=== PATIENT | female | born 1980 | race Caucasian/White ===

== ENCOUNTER 2018-03-27 09:13 | Inpatient (IN) | payer BC ==
[2018-03-27 11:23] LABS: ABS Basophils 0.1 10^3/ul (0-0.2); ABS Eosinophils 0.1 10^3/ul (0-0.6); ABS Lymphocytes 1.5 10^3/ul (1.0-4.8); ABS Monocytes 0.7 10^3/ul (0-0.8); ABS Neutrophils 7.9 10^3/ul (1.5-7.7); ABS Nucleated RBC 0 10^3/ul; Eosinophil % 1.4 % (0-6); Hematocrit 34 % (35-47); Hemoglobin 11.5 g/dl (12.0-16.0); Lymphocyte % 14.4 % (25-47); Mean Corpuscular HGB Conc 34 g/dl (31-36); Mean Corpuscular Hemoglobin 30 pg (27-31); Mean Corpuscular Volume 88 fL (80-97); Mean Platelet Volume 7.5 fL (7.4-10.4); Nucleated Red Blood Cells % 0; Platelet Count 284 10^3/ul (150-450); Red Blood Count 3.79 10^6/ul (4.00-5.40); Red Cell Distribution Width 13 % (10.5-15); White Blood Count 10.4 10^3/ul (3.5-10.8)
[2018-03-27 11:43] LABS: EGFR Non-African American 171.7 (>60)
[2018-03-27] MEDS ORDERED: Betamethasone INJ* 6 MG/ML 5 ML VIAL (30 MG) IM ONE (11:51)
[2018-03-27 12:00] LABS: INR 0.88 (0.77-1.02)
[2018-03-27 12:09] LABS: Platelet Count 284 10^3/ul (150-450); Schistocytes ABSENT
[2018-03-27] MEDS ORDERED: Betamethasone INJ* 6 MG/ML 5 ML VIAL (30 MG) ONE (12:10)
--- NOTE | 2018-03-27 15:00 | HP ---
General Information - Reason for Visit vaginal bleeding - General Information Maternal Age: 37 Grav: 2 Para: 1 SAB: 1 IEA: 0 Estimated Due Date: 05/25/18 Determined By: LMP Maternal Blood Type and Rh: A Positive - Results this Serology/RPR Result: Non-Reactive Rubella Result: Immune HBsAg Result: Negative HIV Result: Negative Past Medical History Delivery History: See Records Pertinent Past Medical History: See Records Pertinent Past Surgical History: See Records Pertinent Family History: See Records - Antepartal Records Antepartal Records: Reviewed, Complicated by: - possible vasa previa/ possible premature rupture of membranes Review of Systems Constitutional: Comfortable CV Complaint: No Respiratory: Shortness of Breath: No Gastrointestinal: No Nausea/Vomiting Genitourinary: Leaking Fluid, No Dysuria, No Bleeding Musculoskeletal: No Complaint Neurological: No Headache Movement: Normal Exam Allergies/Adverse Reactions: Allergies Penicillins Allergy (Verified 03/23/18 06:33) Hives Vital Signs 03/27/18 12:00 Respiratory 16 Rate Lab Values - Entire Visit: Laboratory Tests 03/27/18 03/27/18 03/27/18 10:10 10:10 10:10 WBC 10.4 RBC 3.79 L Hgb 11.5 L Hct 34 L MCV 88 MCH 30 MCHC 34 RDW 13 Plt Count 284 284 MPV 7.5 Neut % (Auto) 76.3 Lymph % (Auto) 14.4 L [place] % (Auto) 7.0 Eos % (Auto) 1.4 Baso % (Auto) 0.9 Absolute Neuts (auto) 7.9 H Absolute Lymphs (auto) 1.5 Absolute Monos (auto) 0.7 Absolute Eos (auto) 0.1 Absolute Basos (auto) 0.1 Absolute Nucleated RBC 0 Nucleated RBC % 0 Schistocytes Absent INR (Anticoag Therapy) 0.88 APTT 23.7 L Fibrinogen 475.1 H D-Dimer, Quantitative 526 H Sodium Potassium Chloride Carbon Dioxide Anion Gap BUN Creatinine Est GFR ( Amer) Est GFR (Non-Af Amer) BUN/Creatinine Ratio Glucose Calcium Total Bilirubin AST ALT Alkaline Phosphatase Total Protein Albumin Globulin Albumin/Globulin Ratio Syphilis IgG Antibody Hep Bs Antigen HIV 1&2 Antibody Rapid Rubella Screen Blood Type A Positive Antibody Screen Negative KB Hemoglobin 03/27/18 03/27/18 03/27/18 10:10 10:10 10:10 WBC RBC Hgb Hct MCV MCH MCHC RDW Plt Count MPV Neut % (Auto) Lymph % (Auto) [place] % (Auto) Eos % (Auto) Baso % (Auto) Absolute Neuts (auto) Absolute Lymphs (auto) Absolute Monos (auto) Absolute Eos (auto) Absolute Basos (auto) Absolute Nucleated RBC Nucleated RBC % Schistocytes INR (Anticoag Therapy) APTT Fibrinogen D-Dimer, Quantitative Sodium 136 Potassium 3.9 Chloride 107 Carbon Dioxide 22 Anion Gap 7 BUN 9 Creatinine 0.42 L Est GFR ( Amer) 207.8 Est GFR (Non-Af Amer) 171.7 BUN/Creatinine Ratio 21.4 H Glucose 81 Calcium 8.3 L Total Bilirubin 0.30 AST 17 ALT 14 Alkaline Phosphatase 122 H Total Protein 6.3 L Albumin 3.3 Globulin 3.0 Albumin/Globulin Ratio 1.1 Syphilis IgG Antibody Nonreactive Hep Bs Antigen Nonreactive HIV 1&2 Antibody Rapid Nonreactive Rubella Screen Immune Blood Type Antibody Screen KB Hemoglobin 03/27/18 10:10 WBC RBC Hgb Hct MCV MCH MCHC RDW Plt Count MPV Neut % (Auto) Lymph % (Auto) [place] % (Auto) Eos % (Auto) Baso % (Auto) Absolute Neuts (auto) Absolute Lymphs (auto) Absolute Monos (auto) Absolute Eos (auto) Absolute Basos (auto) Absolute Nucleated RBC Nucleated RBC % Schistocytes INR (Anticoag Therapy) APTT Fibrinogen D-Dimer, Quantitative Sodium Potassium Chloride Carbon Dioxide Anion Gap BUN Creatinine Est GFR ( Amer) Est GFR (Non-Af Amer) BUN/Creatinine Ratio Glucose Calcium Total Bilirubin AST ALT Alkaline Phosphatase Total Protein Albumin Globulin Albumin/Globulin Ratio Syphilis IgG Antibody Hep Bs Antigen HIV 1&2 Antibody Rapid Rubella Screen Blood Type Antibody Screen KB Hemoglobin 0.000 - Measurements Height: 5 ft 4 in Weight: 152 lb 12.8 oz Weight in lbs: [id number] Body Mass Index (BMI): 26.2 Pre- Weight: 140 lb Weight Gained This : 12.8 lbs and 0 ozs - Exam Breast: Breast Exam Deferred CVA: No CVA Tenderness Extremities: No Edema Heart: Normal Rhythm/Heart Sounds HEENT: No Significant Findings Lungs: Clear Bilaterally Rectal: Rectal Exam Deferred Reflexes: DTR 2+ - Abdominal Exam Abdomen Exam: Non-Tender - Ultrasound/Biophysical Profile Ultrasound Status: Radiology Department Full Exam Targeted Exam Findings See L&D Outpatient Visit Provider Note for Findings: Yes Estimated Weight: 4# 2 0z/ no cervical exam done givne possible vasa previa Amniotic Fluid Evaluation: ROM Plus Pending EFM Findings - External Monitor Findings Baseline Heart Rate: 140 External Monitor Findings: Accelerations Present, No Pattern of Variable or Late Decelerations, Variability Moderate Contractions: Irregular Assessment/Plan - Assessment possible premature rupture of membranes possible vasa previa - Obstetrical Risk Factors Obstetrical Risk Factors: GBS Unknown, - Plan Plan: Antibiotic Prophylaxis - Admit inpatient and observe/ steroids for FLM and begin abx to increase latency, Steroids
[2018-03-27] MEDS: ceFAZolin 1 GM in Dextrose (*) 1 GM/50 ML BAG IVPB SCH (15:59)
[2018-03-27] MEDS ORDERED: ceFAZolin 1 GM ADVAN(*) 1 GM in NS 0.9% 50 ML* 50 ML IVPB SCH (16:00)
[2018-03-27] MEDS ORDERED: Azithromycin TAB* 250 MG PO ONE (16:00)
[2018-03-28] MEDS: ceFAZolin 1 GM in Dextrose (*) 1 GM/50 ML BAG IVPB SCH ×3 (00:22→16:35)
[2018-03-28] MEDS ORDERED: Acetaminophen TAB* 325 MG ONE (02:47)
[2018-03-28] MEDS ORDERED: Acetaminophen TAB* 325 MG PO PRN (03:31)
[2018-03-28] MEDS: LEVOTHYROXINE 137 MCG PO SCH (06:00)
[2018-03-28] MEDS: Prenatal Vitamin TAB PO SCH (09:00)
[2018-03-28] MEDS: Betamethasone INJ* 6 MG/ML 5 ML VIAL (30 MG) IM ONE ×2 (12:20→12:22)
[2018-03-29] MEDS: ceFAZolin 1 GM in Dextrose (*) 1 GM/50 ML BAG IVPB SCH ×2 (00:18→07:59)
[2018-03-29] MEDS: LEVOTHYROXINE 137 MCG PO SCH (06:12)
[2018-03-29] MEDS: Prenatal Vitamin TAB PO SCH (08:52)
--- NOTE | 2018-03-29 13:23 | PN ---
Progress Note - Progress Note Date of Service: 03/29/18 Note: S: pt feeling well. No LOF or VB today. Good FM. Pt up and moving. AVSS Gen: NAD Abd: soft, gravid, NT Ext: neg calf tenderness, neg edema A: @31.5wks with suspected PPROM (?03/23@6am) and previous vaginal bleeding (none since 03/28 3am). Low lying placenta. S/p betamethasone. S/p 48hrs of abx. P: Switch to PO Keflex x5 days Cont NST q shift, VS q2hr when awake If e/o labor or infection will evaluate placental location to determine mode of delivery. Likely delivery at 34wks if not sooner.
[2018-03-29] MEDS: Cephalexin CAP* 500 MG PO SCH ×2 (16:26→22:10)
[2018-03-30] MEDS: Cephalexin CAP* 500 MG PO SCH ×3 (04:05→17:53)
[2018-03-30] MEDS: LEVOTHYROXINE 137 MCG PO SCH (06:07)
--- NOTE | 2018-03-30 11:15 | PN ---
Progress Note - Progress Note Date of Service: 03/30/18 Note: S: pt feeling well. Good FM. She had one episode of a small amount of bleeding with a small clot when she went to the bathroom last evening and then another one this am but no bleeding in between. She also had about an hour of uncomfortable, but not painful ctxs last evening that were about 8-9min apart. Only irreg ctx since. AVSS Gen: NAD Abd: soft, gravid, NT Ext: neg calf tenderness, neg edema A: @31.6wks with suspected PPROM (?03/23@6am) and previous vaginal bleeding (none since 03/28 3am). Low lying placenta. S/p betamethasone. S/p 48hrs of IV abx, now on PO Keflex. P: Cont to PO Keflex x5 days Cont NST q shift, VS q2hr when awake If e/o labor or infection will evaluate placental location to determine mode of delivery. Likely delivery at 34wks if not sooner.
[2018-03-30] MEDS: Prenatal Vitamin TAB PO SCH (13:57)
[2018-03-31] MEDS: Cephalexin CAP* 500 MG PO SCH ×4 (00:12→18:00)
--- NOTE | 2018-03-31 09:58 | PN ---
Progress Note - Progress Note Date of Service: 03/31/18 SOAP: Subjective: [pt feeling well with no contractions or bleeding] Objective: []vital stable and afebrile abdomen soft nontender, gfm Assessment: []32 + weeks with pprom and low lying placenta. stable Plan: []continued observation and antibiotics Nando Muñoz MD
[2018-03-31 10:03] LABS: ABS Basophils 0.1 10^3/ul (0-0.2); ABS Eosinophils 0.2 10^3/ul (0-0.6); ABS Lymphocytes 1.4 10^3/ul (1.0-4.8); ABS Monocytes 0.9 10^3/ul (0-0.8); ABS Neutrophils 8.8 10^3/ul (1.5-7.7); ABS Nucleated RBC 0 10^3/ul; Eosinophil % 1.5 % (0-6); Hematocrit 29 % (35-47); Hemoglobin 9.8 g/dl (12.0-16.0); Lymphocyte % 12.6 % (25-47); Mean Corpuscular HGB Conc 34 g/dl (31-36); Mean Corpuscular Hemoglobin 30 pg (27-31); Mean Corpuscular Volume 89 fL (80-97); Mean Platelet Volume 7.4 fL (7.4-10.4); Nucleated Red Blood Cells % 0; Platelet Count 258 10^3/ul (150-450); Red Blood Count 3.24 10^6/ul (4.00-5.40); Red Cell Distribution Width 13 % (10.5-15); White Blood Count 11.4 10^3/ul (3.5-10.8)
[2018-03-31] MEDS: Prenatal Vitamin TAB PO SCH (11:39)
[2018-04-01] MEDS: Cephalexin CAP* 500 MG PO SCH ×5 (00:01→23:53)
[2018-04-01] MEDS: LEVOTHYROXINE 137 MCG PO SCH (05:53)
[2018-04-01] MEDS: Ferrous Gluconate TAB* 324 MG TAB PO SCH (08:18)
[2018-04-01] MEDS: Prenatal Vitamin TAB PO SCH (08:19)
[2018-04-02] MEDS: Cephalexin CAP* 500 MG PO SCH ×3 (05:57→18:20)
[2018-04-02] MEDS: LEVOTHYROXINE 137 MCG PO SCH (05:58)
[2018-04-02] MEDS: Prenatal Vitamin TAB PO SCH (07:52)
[2018-04-02] MEDS: Ferrous Gluconate TAB* 324 MG TAB PO SCH (07:52)
[2018-04-02] MEDS: Docusate CAP* 100 MG PO SCH (12:49)
[2018-04-03] MEDS: Cephalexin CAP* 500 MG PO SCH ×3 (00:46→13:02)
[2018-04-03] MEDS: Docusate CAP* 100 MG PO SCH ×2 (00:55→16:33)
--- NOTE | 2018-04-03 02:21 | PN ---
Progress Note - Progress Note Date of Service: 04/02/18 SOAP: Subjective: Pt without complaint today. Active FMs, no VB, minimal continued fluid leakage. Denies F/C. Objective: VS normal, afebrile Gen: NAD Abd soft, nontender, gravid NST (BID) reactive, no decels, +accels, moderate rosemary [place]: irreg mild ctx Assessment: 32+3 wks with PPROM, HD#7, s/p betamethasone. Abx day #7 Doing well, no evidence of infection or labor. Very reassuring status Plan: Discussed delivery planning/timing today. Last ultrasound showed no vasa previa, and previous one showed placenta was low (12mm from os), so pt plans . Current plan is to observe until 34 weeks (if no infection/labor), so we will need to schedule . D/C Abx after 7 days complete.
[2018-04-03] MEDS: LEVOTHYROXINE 137 MCG PO SCH (07:35)
[2018-04-03] MEDS: Ferrous Gluconate TAB* 324 MG TAB PO SCH (09:58)
--- NOTE | 2018-04-03 13:21 | PN ---
Progress Note - Progress Note Date of Service: 04/03/18 SOAP: [Subjective: Pt without complaint today. Active FMs, Very minimal bleeding when wiping this am but decreasing now. No other LOF. No ctxs Objective: AVSS Gen: NAD Abd: soft, nontender, gravid NST (BID) reactive, no decels, +accels, moderate rosemary [place]: irreg mild ctx Assessment: 32+4 wks with PPROM and intermittent vaginal bleeding, HD#7, s/p betamethasone and abx finishing today Doing well, no evidence of infection or labor. Very reassuring status Low lying placenta Plan: Observe until 34 weeks if no e/o infection or labor. Then likely CS. ]
[2018-04-03 16:13] LABS: ABS Basophils 0.1 10^3/ul (0-0.2); ABS Eosinophils 0.2 10^3/ul (0-0.6); ABS Lymphocytes 1.9 10^3/ul (1.0-4.8); ABS Monocytes 0.9 10^3/ul (0-0.8); ABS Neutrophils 9.9 10^3/ul (1.5-7.7); ABS Nucleated RBC 0 10^3/ul; Eosinophil % 1.9 % (0-6); Hematocrit 33 % (35-47); Lymphocyte % 14.8 % (25-47); Mean Corpuscular HGB Conc 34 g/dl (31-36); Mean Corpuscular Hemoglobin 30 pg (27-31); Mean Corpuscular Volume 88 fL (80-97); Mean Platelet Volume 7.5 fL (7.4-10.4); Nucleated Red Blood Cells % 0; Platelet Count 342 10^3/ul (150-450); Red Blood Count 3.72 10^6/ul (4.00-5.40); Red Cell Distribution Width 13 % (10.5-15)
[2018-04-03] MEDS: Prenatal Vitamin TAB PO SCH (16:33)
[2018-04-04] MEDS: Docusate CAP* 100 MG PO SCH ×2 (07:22→09:37)
[2018-04-04] MEDS: LEVOTHYROXINE 137 MCG PO SCH ×2 (08:16→09:37)
[2018-04-04] MEDS: Prenatal Vitamin TAB PO SCH (10:27)
[2018-04-04] MEDS: Ferrous Gluconate TAB* 324 MG TAB PO SCH (10:27)
[2018-04-05] MEDS: LEVOTHYROXINE 137 MCG PO SCH (06:02)
[2018-04-05] MEDS: Docusate CAP* 100 MG PO SCH ×2 (06:02→14:40)
[2018-04-05] MEDS: Prenatal Vitamin TAB PO SCH (14:40)
[2018-04-05] MEDS: Ferrous Gluconate TAB* 324 MG TAB PO SCH (14:46)
[2018-04-06] MEDS: LEVOTHYROXINE 137 MCG PO SCH (07:10)
[2018-04-06] MEDS: Prenatal Vitamin TAB PO SCH (12:48)
[2018-04-06] MEDS: Docusate CAP* 100 MG PO SCH (12:48)
[2018-04-06] MEDS: Ferrous Gluconate TAB* 324 MG TAB PO SCH (12:53)
[2018-04-06 19:24] LABS: ABS Basophils 0.1 10^3/ul (0-0.2); ABS Eosinophils 0.2 10^3/ul (0-0.6); ABS Lymphocytes 1.8 10^3/ul (1.0-4.8); ABS Monocytes 0.8 10^3/ul (0-0.8); ABS Neutrophils 7.8 10^3/ul (1.5-7.7); ABS Nucleated RBC 0 10^3/ul; Eosinophil % 1.7 % (0-6); Hematocrit 32 % (35-47); Hemoglobin 10.9 g/dl (12.0-16.0); Lymphocyte % 16.6 % (25-47); Mean Corpuscular HGB Conc 34 g/dl (31-36); Mean Corpuscular Hemoglobin 30 pg (27-31); Mean Corpuscular Volume 88 fL (80-97); Mean Platelet Volume 7.4 fL (7.4-10.4); Nucleated Red Blood Cells % 0; Platelet Count 369 10^3/ul (150-450); Red Blood Count 3.68 10^6/ul (4.00-5.40); Red Cell Distribution Width 13 % (10.5-15); White Blood Count 10.7 10^3/ul (3.5-10.8)
[2018-04-07] MEDS: LEVOTHYROXINE 137 MCG PO SCH (06:01)
[2018-04-07] MEDS: Ferrous Gluconate TAB* 324 MG TAB PO SCH (12:45)
[2018-04-07] MEDS: Prenatal Vitamin TAB PO SCH (12:46)
[2018-04-07] MEDS: Docusate CAP* 100 MG PO SCH (12:46)
[2018-04-08] MEDS: LEVOTHYROXINE 137 MCG PO SCH (06:18)
[2018-04-08] MEDS: Ferrous Gluconate TAB* 324 MG TAB PO SCH (10:04)
--- NOTE | 2018-04-08 10:28 | PN ---
Medicine Progress Note - Date of Service Date of Service: 04/08/18 - Subjective Subjective: Mrs. Houston is a 37 y/o with a at 33 2/7 weeks EGA. She was admitted with PPROM and vaginal bleeding with a Low lying placenta. She has received a course of steroids to advance lung maturity, antibiotic prophylaxis which were discontinued on 04/03/18. She reports active movement. occasional/infrequent mild contractions, denies abdominal pain, vaginal bleeding or discharge and no fever or chills. - Objective Objective: Vital Signs 04/07/18 04/07/18 04/07/18 12:30 16:36 20:15 Temperature 98.0 F 97.3 F Pulse Rate 80 87 Respiratory 17 16 18 Rate Blood Pressure 132/63 116/67 (mmHg) Current Medications Acetaminophen (Tylenol Tab*) 650 mg PO Q6H PRN PRN Reason: PAIN - HEADACHE Last Admin: 03/30/18 07:18 Dose: 650 mg Docusate Sodium (Colace Cap*) 100 mg PO BID [facility] Last Admin: 04/07/18 12:46 Dose: Not Given Ferrous Gluconate (Fergon Tab*) 324 mg PO DAILY [facility] Last Admin: 04/08/18 10:04 Dose: 324 mg Levothyroxine Sodium (Synthroid Tab*) 137 mcg PO DAILY@0600 [facility] Last Admin: 04/08/18 06:18 Dose: 137 mcg Multivitamins ( Vitamin Tab*) 1 tab PO DAILY [facility] Last Admin: 04/07/18 12:46 Dose: Not Given Intake and Output Start: 03/27/18 11: 55 Freq: Status: Active Protocol: Created 03/27/18 11:55 System (Rec: 03/27/18 11:55 System [facility]-[id number]) Document 03/28/18 09:30 [id number] (Rec: 03/28/18 15:55 [id number] [facility]-[id number]) Document 03/28/18 13:15 [id number] (Rec: 03/28/18 15:56 [id number] [facility]-C05) Document 03/28/18 16:50 [id number] (Rec: 03/28/18 16:51 [id number] [email or web address]-[email or web address]) Document 03/28/18 19:00 [id number] (Rec: 03/28/18 19:09 [id number]) Last Finger Stick Glucose Documented by Nursing: General: AAOx3, comfortable. Lungs: CTA b/l, no CVA tenderness noted Cardiovascular: RRR Abdomen:Soft, non tender, gravid with palpable movement. Extremities:Non tender b/l Non Stress test Reactive - Labs Labs: 04/06/18 04/06/18 16:20 16:20 WBC 10.7 RBC 3.68 L Hgb 10.9 L Hct 32 L MCV 88 MCH 30 MCHC 34 RDW 13 Plt Count 369 MPV 7.4 Neut % (Auto) 73.0 Lymph % (Auto) 16.6 L [place] % (Auto) 7.8 H Eos % (Auto) 1.7 Baso % (Auto) 0.9 Absolute Neuts (auto) 7.8 H Absolute Lymphs (auto) 1.8 Absolute Monos (auto) 0.8 Absolute Eos (auto) 0.2 Absolute Basos (auto) 0.1 Absolute Nucleated RBC 0 Nucleated RBC % 0 Blood Type A Positive Antibody Screen Negative - Assessment Assessment: LUZ MARIA LUISJOSY is a 37 year old F. Patient's diagnosis is /BLEEDING/ 32 WKS. - Plan Plan: Continue current management, monitor for s/sx chorioamnionitis, and or pre term labor.
[2018-04-08] MEDS: Prenatal Vitamin TAB PO SCH (20:29)
[2018-04-08] MEDS: Docusate CAP* 100 MG PO SCH (20:30)
[2018-04-09] MEDS: LEVOTHYROXINE 137 MCG PO SCH (05:49)
--- NOTE | 2018-04-09 09:08 | PN ---
Progress Note - Progress Note Date of Service: 04/09/18 SOAP: Subjective: [PT doing well no complaints] Objective: []VSS afeb Abdomen soft NT perineum no active bleeding NST reactive FHT 140 + accel/ no contractions Assessment: [Pt PT at 33 3/7 weeks with p PROM ] Plan: [ Pt to continue with observation and will plan on delivery at 34 weeks. PT overall is doing well. Will screen for GBS as it has been greater than 1 weeks since abx]
[2018-04-09] MEDS: Docusate CAP* 100 MG PO SCH (18:35)
[2018-04-09] MEDS: Ferrous Gluconate TAB* 324 MG TAB PO SCH (20:26)
[2018-04-10] MEDS: Ferrous Gluconate TAB* 324 MG TAB PO SCH (08:13)
[2018-04-10] MEDS: LEVOTHYROXINE 137 MCG PO SCH (08:14)
[2018-04-10] MEDS: Prenatal Vitamin TAB PO SCH (08:15)
[2018-04-10] MEDS: Docusate CAP* 100 MG PO SCH ×2 (08:15→21:16)
--- NOTE | 2018-04-10 16:50 | PN ---
Progress Note - Progress Note Date of Service: 04/10/18 SOAP: Subjective: [Pt feels well. Occ ctx. Continued very minimal bleeding with wiping. Good FM ] Objective: [NST reactive Abd: soft, NT] Assessment: [ @33.4wks with PPROM, no signs active labor or infection.] Plan: [Will plan delivery at 34+wks since she has had no leakage for a long time. ]
[2018-04-11] MEDS: LEVOTHYROXINE 137 MCG PO SCH (07:24)
[2018-04-11] MEDS: Ferrous Gluconate TAB* 324 MG TAB PO SCH (08:42)
[2018-04-11] MEDS: Docusate CAP* 100 MG PO SCH (09:00)
[2018-04-11] MEDS: Prenatal Vitamin TAB PO SCH (09:00)
--- NOTE | 2018-04-11 13:03 | PN ---
Progress Note - Progress Note Date of Service: 04/11/18 SOAP: SOAP: Subjective: [Pt feels well. Occ ctx. Continued very minimal bleeding with wiping. Good FM ] Objective: [NST reactive Abd: soft, NT] Assessment: [ @33.5wks with PPROM, no signs active labor or infection.] Plan: [Will plan delivery at 34+wks since she has had no leakage for a long time. ]
[2018-04-12] MEDS: LEVOTHYROXINE 137 MCG PO SCH (07:47)
[2018-04-12] MEDS: Ferrous Gluconate TAB* 324 MG TAB PO SCH (11:46)
[2018-04-12] MEDS: Docusate CAP* 100 MG PO SCH ×4 (11:58→12:13)
[2018-04-12] MEDS: Prenatal Vitamin TAB PO SCH (11:59)
--- NOTE | 2018-04-12 17:32 | PN ---
Progress Note - Progress Note Date of Service: 04/12/18 SOAP: Subjective: 33+6 wks EGA with PPROM, admitted about 2 wks ago. s/p Abx x7 days complete and betamethasone x2. Pt denies any complaints, active FMs. Small amt of dark blood today, usually has a small amt of bleeding each day. No significant LOF, just some mucus discharge. Objective: Vital Signs: Temp Pulse Resp BP Pulse Ox 97.7 F 89 18 114/62 99 04/12/18 16:08 04/12/18 16:08 04/12/18 16:08 04/12/18 16:08 04/11/18 12:05 NST reactive, no decels Abd soft, nontender, gravid. Assessment: 33+6 wks with PPROM, no evidence of infection (fever, abd pain) and very reassuring testing. Plan: Discussed delivery plan at length today. Pt does not feel comfortable delivering quite yet, but is likely willing to deliver Wed or Thurs. Generally unwilling to try an induction, nervous about bleeding with the low placenta, but said she is unsure if she would want to try laboring if it started spontaneously. I will get another ultrasound tomorrow to check MILE/BPP as well distance between placenta and cervix. Last measurement was only 12mm. Will also get a CBC with diff tomorrow AM. Plan to hopefully get C/S scheduled when I discuss with her again tomorrow.
[2018-04-13] MEDS: LEVOTHYROXINE 137 MCG PO SCH (07:42)
[2018-04-13] MEDS: Docusate CAP* 100 MG PO SCH ×3 (07:52→21:00)
[2018-04-13] MEDS: Ferrous Gluconate TAB* 324 MG TAB PO SCH (08:34)
[2018-04-13] MEDS: Prenatal Vitamin TAB PO SCH (08:39)
[2018-04-13 10:09] LABS: ABS Basophils 0.1 10^3/ul (0-0.2); ABS Eosinophils 0.1 10^3/ul (0-0.6); ABS Lymphocytes 1.3 10^3/ul (1.0-4.8); ABS Monocytes 0.5 10^3/ul (0-0.8); ABS Neutrophils 6.1 10^3/ul (1.5-7.7); ABS Nucleated RBC 0 10^3/ul; Eosinophil % 1.4 % (0-6); Hematocrit 34 % (35-47); Hemoglobin 11.4 g/dl (12.0-16.0); Lymphocyte % 16.2 % (25-47); Mean Corpuscular HGB Conc 34 g/dl (31-36); Mean Corpuscular Hemoglobin 30 pg (27-31); Mean Corpuscular Volume 89 fL (80-97); Mean Platelet Volume 7.1 fL (7.4-10.4); Nucleated Red Blood Cells % 0; Platelet Count 271 10^3/ul (150-450); Red Blood Count 3.77 10^6/ul (4.00-5.40); Red Cell Distribution Width 14 % (10.5-15); White Blood Count 8.1 10^3/ul (3.5-10.8)
--- NOTE | 2018-04-13 16:44 | PN ---
Progress Note - Progress Note Date of Service: 04/13/18 SOAP: Subjective: Pt at 34+0 today with PPROM 2 wks ago with vaginal bleeding. s/p Abx x7 days, and betamethasone x2. No complaints today. Active FMs, no VB/LOF. Objective: Vital Signs - 12 hr Temp Pulse Resp BP 04/13/18 16:21 97.9 F 111 18 109/72 04/13/18 14:05 98.1 F 89 16 105/60 04/13/18 08:44 97.9 F 88 16 107/63 04/13/18 08:41 16 Gen: NAD, comfortable Abd soft, nontender, gravid NST reactive, no decels, +accels [place]: no significant ctx Laboratory Results - last 24 hr 04/13/18 10:00 WBC 8.1 RBC 3.77 L Hgb 11.4 L Hct 34 L MCV 89 MCH 30 MCHC 34 RDW 14 Plt Count 271 MPV 7.1 L Neut % (Auto) 75.4 Lymph % (Auto) 16.2 L [place] % (Auto) 6.2 Eos % (Auto) 1.4 Baso % (Auto) 0.8 Absolute Neuts (auto) 6.1 Absolute Lymphs (auto) 1.3 Absolute Monos (auto) 0.5 Absolute Eos (auto) 0.1 Absolute Basos (auto) 0.1 Absolute Nucleated RBC 0 Nucleated RBC % 0 U/S yesterday: BPP 8/8, MILE 18, vtx presentation. TVUS: placenta 26mm from os. Cervix closed. No visible abruption. Assessment: 34+0 wks, very stable with PPROM, poss partial abruption. Plan: Pt still strongly desires to not have an induction for delivery, despite the higher placental location. Per previous plan, we will schedule induction this week, Sat or . Pt extensively counseled regarding surgery including risks of hemorrhage, transfusion, infection, organ injury, hysterectomy, DVT and . All questions answered.
[2018-04-14] MEDS: LEVOTHYROXINE 137 MCG PO SCH (07:28)
[2018-04-14] MEDS: Prenatal Vitamin TAB PO SCH (09:00)
[2018-04-14] MEDS: Docusate CAP* 100 MG PO SCH (09:40)
[2018-04-14] MEDS: Ferrous Gluconate TAB* 324 MG TAB PO SCH (09:40)
[2018-04-15] MEDS: LEVOTHYROXINE 137 MCG PO SCH (06:40)
[2018-04-15 06:49] LABS: ABS Basophils 0.1 10^3/ul (0-0.2); ABS Eosinophils 0.2 10^3/ul (0-0.6); ABS Lymphocytes 1.3 10^3/ul (1.0-4.8); ABS Monocytes 0.5 10^3/ul (0-0.8); ABS Neutrophils 6.1 10^3/ul (1.5-7.7); ABS Nucleated RBC 0 10^3/ul; Eosinophil % 1.9 %; Hematocrit 31 % (35-47); Hemoglobin 10.6 g/dl (12.0-16.0); Mean Corpuscular HGB Conc 34 g/dl (31-36); Mean Corpuscular Hemoglobin 30 pg (27-31); Mean Corpuscular Volume 88 fL (80-97); Mean Platelet Volume 7.3 fL (7.4-10.4); Nucleated Red Blood Cells % 0.1; Platelet Count 232 10^3/ul (150-450); Red Blood Count 3.55 10^6/ul (4.00-5.40); Red Cell Distribution Width 14 % (10.5-15); White Blood Count 8.2 10^3/ul (3.5-10.8)
[2018-04-15] MEDS: Ferrous Gluconate TAB* 324 MG TAB PO SCH (16:06)
[2018-04-15] MEDS: Docusate CAP* 100 MG PO SCH ×2 (16:12→20:45)
[2018-04-16] MEDS ORDERED: ceFAZolin 2 GM PREMIX in ORs 0 GM/0 ML BAG IVPB ONE (04:15)
[2018-04-16] MEDS ORDERED: ceFOXitin 2 GM IVPREMIX* 2 GM/50 ML BAG IVPB ONE (07:00)
[2018-04-16] MEDS ORDERED: Phenylephrine INJ* 10 MG/ML 1 ML VIAL (10 MG) ONE (07:21)
[2018-04-16] MEDS ORDERED: Buffered Lidocaine 0.9% SYRIN* 5 ML/SYR SYRINGE INTRADERM ONE (07:24)
[2018-04-16] MEDS ORDERED: Sodium Citrate/Citric Acid* 15 ML UDC PO ONE (07:24)
[2018-04-16] MEDS ORDERED: Morphine PF AMP (0.5MG/ML)* 5 MG/10 ML AMP ONE (07:35)
[2018-04-16] MEDS ORDERED: OXYTOCIN* 10 UNITS/ML 1 ML VIAL ONE ×2 (08:18→08:58)
[2018-04-16] MEDS ORDERED: Naloxone* 0.4 MG/ML 1 ML VIAL IV PRN ×2 (08:42→08:44)
[2018-04-16] MEDS ORDERED: fentaNYL* 50 MCG/ML 2 ML VIAL (100 MCG VIAL) IV PRN (08:42)
[2018-04-16] MEDS ORDERED: Ketorolac INJ* 30 MG/ML 1 ML VIAL IV PRN (08:42)
[2018-04-16] MEDS ORDERED: Nalbuphine* 10 MG/ML 1 ML VIAL IV PRN (08:44)
[2018-04-16] MEDS ORDERED: diPHENhydraMINE IV* 50 MG/ML 1 ml VIAL (BENADRYL) IV PRN (08:44)
[2018-04-16] MEDS ORDERED: Naloxone* 2 MG in NS 0.9% 250 ML* 250 ML IV PRN (08:44)
[2018-04-16] MEDS ORDERED: Ondansetron INJ* 2 MG/ML VIAL IV PRN (08:44)
[2018-04-16] MEDS: LEVOTHYROXINE 137 MCG PO SCH (09:52)
[2018-04-16] MEDS ORDERED: Acetaminophen TAB* 325 MG PO PRN (09:58)
[2018-04-16] MEDS ORDERED: oxyCODONE/Acetamin 5/325 MG* TAB PO PRN (09:58)
[2018-04-16] MEDS ORDERED: Ibuprofen TAB* 600 MG PO PRN (09:58)
[2018-04-16] MEDS ORDERED: Witch Hazel PAD* JAR TOPICAL PRN (09:58)
[2018-04-16] MEDS: Docusate CAP* 100 MG PO SCH ×2 (11:51→22:23)
[2018-04-16] MEDS: Prenatal Vitamin TAB PO SCH (11:52)
[2018-04-16] MEDS: Simethicone TAB* 80 MG TAB.CHEW PO SCH ×3 (12:36→22:23)
[2018-04-16] MEDS: Ketorolac INJ* 30 MG/ML 1 ML VIAL IV PRN ×2 (16:35→22:23)
[2018-04-17] MEDS: oxyCODONE/Acetamin 5/325 MG* TAB PO PRN ×5 (04:07→23:13)
[2018-04-17] MEDS: Ketorolac INJ* 30 MG/ML 1 ML VIAL IV PRN (04:08)
[2018-04-17] MEDS: LEVOTHYROXINE 137 MCG PO SCH (06:04)
[2018-04-17 06:17] LABS: ABS Basophils 0.1 10^3/ul (0-0.2); ABS Eosinophils 0.1 10^3/ul (0-0.6); ABS Lymphocytes 0.9 10^3/ul (1.0-4.8); ABS Monocytes 0.8 10^3/ul (0-0.8); ABS Neutrophils 9.1 10^3/ul (1.5-7.7); ABS Nucleated RBC 0 10^3/ul; Eosinophil % 0.7 %; Hematocrit 27 % (35-47); Hemoglobin 8.9 g/dl (12.0-16.0); Lymphocyte % 8.5 %; Mean Corpuscular HGB Conc 34 g/dl (31-36); Mean Corpuscular Hemoglobin 30 pg (27-31); Mean Corpuscular Volume 89 fL (80-97); Mean Platelet Volume 7.3 fL (7.4-10.4); Nucleated Red Blood Cells % 0.1; Platelet Count 211 10^3/ul (150-450); Red Blood Count 2.97 10^6/ul (4.00-5.40); Red Cell Distribution Width 14 % (10.5-15)
--- NOTE | 2018-04-17 10:28 | OP ---
DATE OF OPERATION: 04/16/18 - ROOM #118 DATE OF : 84 SURGEON: Saba Burk MD PEDIATRIC NURSE: Bob El CNM ANESTHESIOLOGIST: Dr. Olivas ANESTHESIA: Spinal. PRE-OP DIAGNOSIS: A 34 plus 3 weeks gestation with premature rupture of membranes over 2 weeks ago and possible partial abruption, declining an induction. POST-OP DIAGNOSIS: A 34 plus 3 weeks gestation with premature rupture of membranes over 2 weeks ago and possible partial abruption, declining an induction. OPERATIVE PROCEDURE: Primary low transverse section with vacuum assist. ESTIMATED BLOOD LOSS: 900 cc. URINE OUTPUT: 100 cc. IV FLUIDS: 2600 cc lactated Ringer's. MATERIALS TO LAB: Cord blood and placenta. INDICATIONS: This patient is a 37-year-old, 1, para 0, initially admitted to [facility] about 2-1/2 weeks ago with bleeding and testing returned positive for rupture of membranes. The patient was initially managed with 7 days of antibiotics and also received steroids for lung maturity. The patient continued to have very light bleeding and spotting; however, fluid leakage discontinued. The plan had been made to deliver once the patient reached 34 weeks gestation, so she was scheduled for today. The patient was counseled for induction of labor versus . Considering her episodes of bleeding, the patient was very concerned about the potential for bleeding during labor and refused induction preferring a primary section. She was extensively counseled for the procedure and a consent was signed. FINDINGS: Normal appearing uterus, fallopian tubes, and ovaries. Placenta was quite low anterior but not previa. Delivery is productive of a 5 pound 14 ounce male with Apgars of 8 and 9. Time of delivery was 0835. COMPLICATIONS: None. DESCRIPTION OF PROCEDURE: The risks, benefits, and alternatives were described to the patient and informed consent was obtained. The patient was taken to the operating room with IV running where spinal anesthesia was induced and found to be adequate. The patient was prepped and draped in the normal sterile fashion in the dorsal supine position with leftward tilt. A Pfannenstiel skin incision was made with a scalpel and this was carried down to the underlying fascia sharply. The fascia was then scored in the midline with the scalpel. The incision was extended using Pressley scissors. The rectus muscles were dissected off the rectus fascia using blunt and sharp dissection. The rectus muscles were in the midline bluntly. The peritoneum was also entered bluntly. A bladder blade was placed. A bladder flap was created sharply using Metzenbaum scissors. A low transverse uterine incision was made with the scalpel. This was carried down to the amniotic cavity which was productive of clear fluid. The incision was extended with blunt traction. The head was elevated to the level of the incision without difficulty and delivered through the incision. With fundal pressure, the shoulders and body delivered without difficulty. The had an excellent tone and cried immediately on delivery. The cord was doubly clamped and cut. The was then handed to the awaiting buy boat operator. Cord blood was collected. The placenta then delivered with manual extraction. The uterus was then exteriorized and cleared of all clots and debris. Uterine incision was reapproximated using 0 Polysorb in a running-locked fashion. A second layer of imbricating sutures of 0 Polysorb was also placed with good hemostasis. The posterior cul-de-sac was irrigated with saline. The uterus was then returned to the abdomen, and the incision was reinspected and noted to be hemostatic. The peritoneum was closed with 2-0 chromic in a running fashion. The fascia was closed with 0 Polysorb in a running fashion. Subcutaneous tissues were reapproximated using 2-0 chromic and interrupted sutures. The skin was then closed with 4-0 Monocryl in a subcuticular stitch. Mastisol and Steri-Strips were placed over the incision which was then covered with a sterile bandage. The patient tolerated the procedure well. Sponge, lap, and needle counts were correct x2. [id number]/[facility] #: [id number] [facility]
[2018-04-17] MEDS: Docusate CAP* 100 MG PO SCH ×2 (10:54→21:08)
[2018-04-17] MEDS: Ibuprofen TAB* 600 MG PO PRN ×3 (10:54→23:12)
[2018-04-17] MEDS: Ferrous Gluconate TAB* 324 MG TAB PO SCH ×2 (10:54→21:08)
[2018-04-17] MEDS: Simethicone TAB* 80 MG TAB.CHEW PO SCH ×3 (10:55→17:43)
[2018-04-17] MEDS: Prenatal Vitamin TAB PO SCH (10:57)
[2018-04-17 22:54] VITALS: BP 107/64
[2018-04-18] MEDS: oxyCODONE/Acetamin 5/325 MG* TAB PO PRN ×2 (03:27→07:06)
[2018-04-18] MEDS: Ibuprofen TAB* 600 MG PO PRN (05:24)
[2018-04-18] MEDS: Simethicone TAB* 80 MG TAB.CHEW PO SCH (07:05)
[2018-04-18] MEDS: Ferrous Gluconate TAB* 324 MG TAB PO SCH (07:05)
[2018-04-18] MEDS: Prenatal Vitamin TAB PO SCH (07:06)
== END 2018-04-18 07:30 | disposition home or self-care (01) | DRG 540 ==
LOC: MCHOBOUT 09:13 → MCHOB 11:52
PROVIDERS: ADMIT Obstetrics & Gynecology; ATTEND Obstetrics & Gynecology
PROC: 4A1HXCZ Monitoring of Products of Conception, Cardiac Rate, External Approach (ICD-10-PCS; 2018-04-16)
PROC: 10D00Z1 Extraction of Products of Conception, Low, Open Approach (ICD-10-PCS; principal; 2018-04-16 07:53)
DX: O42.113 Preterm premature rupture of membranes, onset of labor more than 24 hours following rupture, third trimester (principal); O44.53 Low lying placenta with hemorrhage, third trimester; O99.284 Endocrine, nutritional and metabolic diseases complicating childbirth; E03.9 Hypothyroidism, unspecified; O90.81 Anemia of the puerperium; Z3A.34 34 weeks gestation of pregnancy; Z37.0 Single live birth; Z88.0 Allergy status to penicillin
CPT/HCPCS: 36415; 76810; 76817; 76819; 80053; 83030; 83036; 84112; 84439; 84443; 85025; 85049; 85362; 85384; 85610; 85730; 86376; 86592; 86703; 86762; 86850; 86900; 86901; 86922; 87070; 87086; 87340; 87491; 87591; 88307; A9270-GY; J0690; J0694; J0702; J1885; J2405; J2590